=== PATIENT | female | born 1940 | race Caucasian/White ===

== ENCOUNTER 2025-02-12 18:26 | Emergency (ER) | payer MEDICARE, BC ==
--- NOTE | 2025-02-12 23:31 | Physician Documentation ---
History of Present Illness ~ General Chief Complaint: See Chief Complaint Stated Complaint: MEDICAL EQUIPMENT MALFUNCTION Time Seen by MD: 23:29 OK to notify your PCP?: Yes Primary Medical Doctor: Daniel zaragoza Source: patient, RN/, RN notes reviewed, old records Mode of Arrival: POV Exam Limitations: no limitations History of Present Illness Initial Comments RAP This patient is an 84 y/o female BIBEMS to ED with bleeding from her PICC line. Clover states that she was seen at [facility] this morning for similar complaint, and had her PICC line replaced. She states then this afternoon she noticed more blood pooling in the PICC line while getting her medications. Patient states she initially had this PICC line placed for IV antibiotics to treat her chronic UTIs. She is taking Eliquis for atrial fibrillation. Patient denies any other associated symptoms at this time. Patient denies any other alleviating or exacerbating factors. Medication Reconciliation Allergies: Coded Allergies: Penicillins (Verified Allergy, Unknown, 02/12/25) >5 years, hives, no treatment required, PEN-FAST 2 aspirin (Verified Allergy, Unknown, 02/12/25) Past Medical History Past Medical History: Atrial Fibrillation, UTI, Osteoporosis Past Surgical History: , gastric bypass, orthopedic surgeries, tons illectomy Other Past Surgical History: skin surgery Review of Systems All Other Systems at this time: Reviewed and Negative Physical Exam Physical Exam Vital Signs: RN Vital Signs have been reviewed: Yes, Temperature: 97.6, Source: Temporal, Heart Rate: 73, Respiratory Rate: 15, BP: 147/78, Pulse Oximetry: 98 Physical Exam General: The patient is well developed, well nourished, nontoxic appearing and is in no acute distress. Skin: [place], warm and dry with no rashes. HEENT: Head was normocephalic and atraumatic. Eyes - pupils equal, round, reactive to light and accommodation. Extraocular movements were intact. Conjunctivae were nonicteric. The mouth and oropharynx were clear with moist mucous membranes. There were no pharyngeal exudates or erythema. Neck: Supple and nontender. There was no jugular venous distention, lymphadenopathy, thyromegaly or masses. Chest: Clear to auscultation bilaterally without wheezes, rales or rhonchi. No accessory muscle use. No dullness to percussion. Heart: Rate regular and rhythmic. S1, S2. No murmurs. Palpation of the chest wall was normal. No rubs or thrills. Abdomen: Soft, nontender and nondistended. Positive bowel sounds. No guarding or rebound. No hepatosplenomegaly or palpable masses. Extremities: Chronic venous stasis changes. Pitting edema to bilateral lower extremities. RLE: There is some dried blood at the insertion site of the PICC line. No cyanosis or clubbing. The patient moves all extremities. Pulses were equal and symmetric. Neurologic: Motor and sensation grossly intact. A & O x4. Psychologic: The patient was oriented to person, place and time. Progress Results/Orders Reviewed/noted all lab results: Yes Results/Orders Vital Signs 02/12/25 18:53 Temp 97.6 Pulse 73 Resp 15 B/P (MAP) 147/78 Pulse Ox 98 Re-Evaluation Re-Evaluation : Re-Evaluation: Improved Progress Patient was seen and examined. Patient was given reassurance. The patient is PICC line was bleeding and was just placed. Seems to have stopped it is limited. She denies any hematoma no significant pain. She received antibiotics. She does take blood thinners. She has no other complaints at this time. The patient's bandages were replaced. She was told to hold her anticoagulation for tomorrow restart in four days. Or start sooner if there was no more bleeding. Patient can put ice in her axilla if needed she was then discharged home said she can continue using the PICC line as needed. Medical Decision Making Additional info obtained from: old records Departure Time of Disposition: 23:44 Disposition: HOME / SELF CARE / HOMELESS Impression: Primary Impression: Bleeding from PICC line Qualified Codes: T82.838A - Hemorrhage due to vascular prosthetic devices, implants and grafts, initial encounter Condition: Stable Discharge Instructions: PICC Home Care Guide Additional Instructions: DO NOT TAKE YOUR ELIQUIS TOMORROW MORNING, DO NOT RESUME TAKING IT UNTIL THE BLEEDING FROM YOUR PICC LINE RESOLVES. IF BLEEDING PERSISTS RESUME IN 3 DAYS. Referrals: NO PRIMARY CARE PROVIDER (PCP) Education Educated: Patient Educated regarding: diagnosis, treatment, need for follow up Signature Scribe Signature: Scribed for Hayden Benitez MD by [address]. 02/13/25 00:15 Attestation: The note accurately reflects work and decisions made by me.Hayden Benitez MD 02/12/25 23:30 HAYDEN BENITEZ MD Feb 12, 2025 23:31
[2025-02-13 02:03] VITALS: BP 142/70; PULSE 72; RESP 18; TEMP 98.6; O2SAT 98
== END 2025-02-13 02:04 | disposition home or self-care (01) ==
LOC: ER 18:27
DX: T82.838A Hemorrhage due to vascular prosthetic devices, implants and grafts, initial encounter (principal); Y83.8 Other surgical procedures as the cause of abnormal reaction of the patient, or of later complication, without mention of misadventure at the time of the procedure; I48.91 Unspecified atrial fibrillation; Z88.0 Allergy status to penicillin; Z88.6 Allergy status to analgesic agent; Z79.01 Long term (current) use of anticoagulants
CPT/HCPCS: 99284